=== PATIENT | female | born 1975 | race Caucasian/White ===

== ENCOUNTER 2022-02-05 13:00 | Emergency (ER) | payer SELFPAY ==
[2022-02-05 13:02] VITALS: BP 130/82; PULSE 64; RESP 18; TEMP 36.4; O2SAT 99; BMI 41.1
--- NOTE | 2022-02-05 13:24 | ECG_ITS ---
[facility] Test Date: 2022-02-05 Pat Name: Eva Ngo Department: Room: Gender: Female Refrigeration Service Technician: : 1975 Requested By: Gurmeet Pa Order Number: [id number] Pro MD: Femi Cruz M.D. Measurements Intervals [place] Rate: 64 P: 41 ME: 156 QRS: 44 QRSD: 75 T: 40 QT: 404 QTc: 417 Interpretive Statements SINUS RHYTHM POSSIBLE LEFT ATRIAL ENLARGEMENT [-0.1mV P-WAVE IN V1/V2] LOW QRS VOLTAGE IN PRECORDIAL LEADS [QRS DEFLECTION < 1.0 mV IN CHEST LEADS] No previous ECG available for comparison Electronically Signed On 02-05-2022 17:16:41 CDT by Femi Cruz M.D. [id number]
--- NOTE | 2022-02-05 13:37 | W.ED.DIZZY ---
HPI - Dizziness General: Chief Complaint: Dizziness Stated Complaint: Heart racing Time Seen by Provider: 02/05/22 13:36 Source: patient Mode of arrival: ambulatory History of Present Illness: HPI Narrative: 46-year-old female feeling very anxious and at times dizzy. She felt like her heart was racing she woke up she fell back asleep and then got up again this morning she tried to do some activities around the house just felt like her heart was racing and she was slightly short of breath she never had any chest pain. She denies any fever sweats chills she was recently started on antibiotics for serous otitis media and she still completing nose. She is not used any decongestants or any nasal sprays. She denies any fever sweats or chills. She is not dizzy at all at this time nor does she feel like she has any racing heartbeats or irregular heartbeat. No focal neurologic deficits noted. MD elicited complaint: dizziness and lightheadedness Onset (ago): hour(s) Timing: awoke with symptoms Severity: mild Exacerbating factors: nothing Relieving factors: nothing Associated symptoms: Reports palpitations; Denies change in hearing, chest pain, chills, cough, diaphoresis, ear discharge, ear pressure, fevers/chills, headache(s), malaise, nausea, nasal congestion, rash, short of breath, syncope, tinnitus, vomiting or weakness Associated neuro symptoms: Deny confusion, difficulty speaking, dysphagia, diplopia, extremity weakness, facial numbness, facial weakness, gait changes, numbness in extremities or visual changes Review of Systems Const: Denies: fever(s), chills, malaise or diaphoresis ENMT: Denies: ear discharge, change in hearing, tinnitus or nasal congestion Card: Reports: palpitations; Denies: chest pain, irregular heart rhythm, edema or syncope Resp: Reports: dyspnea; Denies: productive cough or non-productive cough GI: Denies: nausea, vomiting or dysphagia : Denies: flank pain, difficulty voiding, dysuria, urinary frequency or urinary urgency Skin/Breast: Denies: rash or pruritus Neuro: Denies: headache(s), numbness in extremities or confusion PFS ED PFSH: Medical History Dental abscess Social History Smoking and tobacco status: never smoked Female Reproductive History: Date of last menstrual period: 01/20/22 Physical Exam Const: GENERAL APPEARANCE: cooperative and comfortable ORIENTATION/CONSCIOUSNESS: Yes awake, Yes oriented to person, Yes oriented to place and Yes oriented to time HENMT: COMMON NORMALS: normocephalic, atraumatic and hearing grossly normal bilaterally HEAD & SCALP: normocephalic and atraumatic Resp: COMMON NORMALS: normal respiratory effort, No retractions, No use of accessory muscles and clear to auscultation bilaterally AUSCULTATION: clear to auscultation bilaterally Cardio: COMMON NORMALS: regular rate, regular rhythm and No murmurs present (Cardio) RATE: regular rate RHYTHM: regular rhythm GI: COMMON NORMALS: Soft to palpation and No hepatosplenomegaly present AUSCULTATION: Yes normoactive bowel sounds PALPATION: Yes Soft to palpation, No Tenderness to palpation present (GI), No Guarding due to palpation present (GI) and Yes No hepatosplenomegaly present Extremity: COMMON NORMALS: normal to inspection, capillary refill normal, no clubbing, cyanosis or edema, no calf tenderness and no pedal edema Neuro: SENSORIUM/ORIENTATION: Yes oriented to person, Yes oriented to place and Yes oriented to time Skin: COMMON NORMALS: no rashes or lesions noted GENERAL SKIN EXAM: no rashes or lesions noted Course Vital Signs: Vital signs: Vital Signs Temperature 97.5 F L 02/05/22 13:02 Pulse Rate 73 02/05/22 14:59 Respiratory Rate 16 02/05/22 14:59 Blood Pressure 153/87 02/05/22 14:59 Pulse Oximetry 99 02/05/22 14:59 Oxygen Delivery Me thod 02/05/22 14:59 MDM - Dizziness Medical Decision Making Labs and EKG reviewed. Exam is normal. EKG does not show anything acute. At most she has a little bit of fluid behind her right ear but otherwise I find no significant lab or exam abnormalities. Encourage patient to follow-up with her primary care doctor return if is worsening symptoms Medical Records I reviewed the patient's medical records. Lab Data I reviewed the patient's lab results. : 02/05/22 13:50 02/05/22 13:50 Laboratory Results WBC 5.7 10^3/uL (4.0-10.0) 02/05/22 13:50 RBC 4.87 10^6/uL (4.1-5.3) 02/05/22 13:50 Hgb 12.9 g/dL (11.5-15.3) 02/05/22 13:50 Hct 39.6 % (37.0-47.0) 02/05/22 13:50 MCV 81.3 fl (81-99) 02/05/22 13:50 MCH 26.5 pg (28.0-34.0) L 02/05/22 13:50 MCHC 32.6 g/dL (30.0-36.0) 02/05/22 13:50 RDW 14.2 % (12.1-15.1) 02/05/22 13:50 Plt Count 277 10^3/cmm (130-400) 02/05/22 13:50 MPV 10.2 fL (7.4-10.4) 02/05/22 13:50 Neut % (Auto) 56.3 % 02/05/22 13:50 Lymph % (Auto) 34.0 % 02/05/22 13:50 [place] % (Auto) 6.8 % 02/05/22 13:50 Eos % (Auto) 2.3 % 02/05/22 13:50 Baso % (Auto) 0.3 % 02/05/22 13:50 Neut # (Auto) 3.23 10^3/uL (1.8-7.7) 02/05/22 13:50 Lymph # (Auto) 2.0 10^3/uL (0.8-4.8) 02/05/22 13:50 [place] # (Auto) 0.4 10^3/uL (0.2-0.9) 02/05/22 13:50 Eos # (Auto) 0.1 10^3/uL (0.0-0.8) 02/05/22 13:50 Baso # (Auto) 0.0 10^3/uL (0.0-0.1) 02/05/22 13:50 Nucleated RBC % (auto) 0 % 02/05/22 13:50 Nucleated RBCs # 0.0 /100WBC 02/05/22 13:50 Sodium 136 mmol/L (136-145) 02/05/22 13:50 Potassium 4.0 mmol/L (3.5-5.1) 02/05/22 13:50 Chloride 102 mmol/L (98-107) 02/05/22 13:50 Carbon Dioxide 25 mmol/L (22-29) 02/05/22 13:50 Anion Gap 13.0 (5-19) 02/05/22 13:50 BUN 9 mg/dL (6-20) 02/05/22 13:50 Creatinine 0.7 mg/dL (0.5-0.9) 02/05/22 13:50 GFR Calculation 90.5 mL/min (90-130) 02/05/22 13:50 Glucose 92 mg/dL (65-115) 02/05/22 13:50 Calculated Osmolality 280 mOsm/kg (285-295) L 02/05/22 13:50 Calcium 8.9 mg/dL (8.5-10.5) 02/05/22 13:50 Discharge Plan Discharge Patient Disposition: Home Clinical Impression: Anxiety, Serous otitis media Condition: Stable Prescriptions: No Action amoxicillin 875 mg tablet 875 mg PO BID 10 Days Qty: 20 0RF Zyrtec 10 mg Tablet 10 mg PO DAILY Flonase 50 mcg/actuation [place],Suspension 1 spray INTRANASAL Q12H Rx Instructions: administer into each nostril Discharge Orders: Discharge ED (Routine); Ordered 02/05/22 Ordered By: Gurmeet Kaba Discharge Diet: Usual diet Discharge Activity: Resume usual activity Patient Instructions: Opioid Safety, Pain Management Activity Restrictions/Additional Instructions: Follow-up with your primary care doctor as needed complete the previously prescribed antibiotics. Coding Level of Care Code ED Wax [place] Knock Out Worker for Chauncey Salomon
[2022-02-05 13:46] VITALS: BP 158/100; PULSE 72; RESP 16; O2SAT 99
--- NOTE | 2022-02-05 13:48 | PC.NURSE ---
Patient is on continuous CM and SP02 monitor.
[2022-02-05 14:07] LABS: Basophils % 0.3 %; Eosinophils # 0.1 10^3/uL (0.0-0.8); Eosinophils % 2.3 %; Hematocrit 39.6 % (37.0-47.0); Hemoglobin 12.9 g/dL (11.5-15.3); Mean Corpuscular HGB Conc 32.6 g/dL (30.0-36.0); Mean Corpuscular Hemoglobin 26.5 pg (28.0-34.0); Mean Corpuscular Volume 81.3 fl (81-99); Mean Platelet Volume 10.2 fL (7.4-10.4); Monocytes # 0.4 10^3/uL (0.2-0.9); Monocytes % 6.8 %; Neutrophils # 3.23 10^3/uL (1.8-7.7); Neutrophils % 56.3 %; Nucleated Red Blood Cells % 0 %; Platelet Count 277 10^3/cmm (130-400); Red Blood Count 4.87 10^6/uL (4.1-5.3); Red Cell Distribution Width 14.2 % (12.1-15.1); White Blood Count 5.7 10^3/uL (4.0-10.0)
[2022-02-05 14:27] LABS: Blood Urea Nitrogen 9 mg/dL (6-20); Calcium 8.9 mg/dL (8.5-10.5); Carbon Dioxide 25 mmol/L (22-29); Chloride 102 mmol/L (98-107); Creatinine Clr Calc Pharmacy 122.3503; Glomerular Filtration Rate 90.5 mL/min (90-130); Glucose 92 mg/dL (65-115); Osmolality Calculated 280 mOsm/kg (285-295); Sodium 136 mmol/L (136-145)
[2022-02-05 14:59] VITALS: BP 153/87; PULSE 73; RESP 16; O2SAT 99
[2022-02-05 15:22] VITALS: BP 150/91; PULSE 62; RESP 17; O2SAT 99
== END 2022-02-05 15:23 | disposition home or self-care (01) ==
PROVIDERS: Emergency Provider Family Medicine
DX: F41.9 Anxiety disorder, unspecified (principal); H65.91 Unspecified nonsuppurative otitis media, right ear
CPT/HCPCS: 80048; 85025; 90686; 93005; 99284

== ENCOUNTER → 2022-02-06 09:59 | Outpatient (BNVA) | payer SELFPAY | PROVIDERS: PCP Family Medicine; Visit Provider Family Medicine | DX: F32.1 Major depressive disorder, single episode, moderate (principal); Z68.41 Body mass index [BMI] 40.0-44.9, adult; Z12.4 Encounter for screening for malignant neoplasm of cervix; Z23 Encounter for immunization; Z12.39 Encounter for other screening for malignant neoplasm of breast; F41.9 Anxiety disorder, unspecified; J30.2 Other seasonal allergic rhinitis; H65.90 Unspecified nonsuppurative otitis media, unspecified ear | CPT/HCPCS: 80061 ==

== ENCOUNTER → 2022-04-06 10:12 | Outpatient (BNVA) | payer SELFPAY | PROVIDERS: PCP Family Medicine; Visit Provider Obstetrics & Gynecology | DX: Z01.419 Encounter for gynecological examination (general) (routine) without abnormal findings (principal); Z12.39 Encounter for other screening for malignant neoplasm of breast | CPT/HCPCS: 87624 ==

== ENCOUNTER 2023-02-23 12:03 | Emergency (ER) | payer OTHER, SELFPAY ==
[2023-02-23 12:03] VITALS: BP 142/107; PULSE 70; RESP 18; TEMP 36.7; O2SAT 98; BMI 39.9
[2023-02-23 12:14] VITALS: BP 142/107; PULSE 63; RESP 18; O2SAT 93
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
[2023-02-23 12:56] LABS: Basophils # 0.1 10^3/uL (0.0-0.1); Basophils % 0.8 %; Eosinophils # 0.3 10^3/uL (0.0-0.8); Eosinophils % 3.7 %; Hematocrit 42.3 % (36-47); Lymphocytes # 1.7 10^3/uL (0.8-4.8); Lymphocytes % 19.8 %; Mean Corpuscular HGB Conc 31.9 g/dL (30-55); Mean Corpuscular Hemoglobin 26.4 pg (27-33); Mean Corpuscular Volume 82.6 fl (85-98); Mean Platelet Volume 10.2 fL (7.4-10.4); Monocytes # 0.4 10^3/uL (0.2-0.9); Monocytes % 5.1 %; Neutrophils # 6.13 10^3/uL (1.8-7.7); Neutrophils % 70.4 %; Nucleated Red Blood Cells % 0 %; Platelet Count 358 10^3/cmm (157-399); Red Blood Count 5.12 10^6/uL (3.85-5.65)
[2023-02-23 13:15] LABS: Alanine Aminotransferase 40 U/L (0-33); Albumin Level 4.3 g/dL (3.5-5.2); Alkaline Phosphatase 77 U/L (35-105); Aspartate Amino Transferase 34 U/L (0-32); Blood Urea Nitrogen 11 mg/dL (6-20); Calcium 9.3 mg/dL (8.5-10.5); Carbon Dioxide 26 mmol/L (22-29); Chloride 103 mmol/L (98-107); Globulin 3.1 g/dL (1.3-4.6); Glomerular Filtration Rate 77.2 mL/min (90-130); Glucose 105 mg/dL (65-115); Osmolality Calculated 288 mOsm/kg (285-295); Sodium 139 mmol/L (136-145); Total Bilirubin 0.6 mg/dL (0.15-1.2); Total Protein 7.4 g/dL (6.6-8.7)
[2023-02-23] MEDS: iohexol 350 mg/mL 500 mL Btl (per mL) IV (13:17)
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
[2023-02-23 13:53] LABS: Urine Color Dark Yellow (Yellow)
[2023-02-23 13:54] LABS: Add Urine Microscopic? YES; Bilirubin Urine 1+ (Negative); Blood Urine 3+ (Negative); Glucose Urine UA Norm (Normal); Ketones Urine Negative (Negative); Leukocyte Esterase Urine Trace (Negative); Nitrate Urine Negative (Negative); Protein Urine 1+ (Negative); Urine Appearance SL Hazy (CLEAR); Urobilinogen Urine Norm (Negative); pH Urine 5 (5-7)
[2023-02-23 13:55] LABS: Add Urine Culture? Yes; Bacteria Urine 2+ /hpf
== END 2023-02-23 15:09 | disposition home or self-care (01) ==
PROVIDERS: Emergency Provider Family Medicine; PCP Family Medicine
DX: S39.012A Strain of muscle, fascia and tendon of lower back, initial encounter (principal); M54.2 Cervicalgia; V89.2XXA Person injured in unspecified motor-vehicle accident, traffic, initial encounter; S40.022A Contusion of left upper arm, initial encounter
CPT/HCPCS: 70450; 71260; 72125; 73502; 73562; 74177; 80053; 81001; 85025; 87086; 99285; Q9967

== ENCOUNTER → 2023-03-04 12:28 | Outpatient (BNVA) | payer MEDICAID, SELFPAY | PROVIDERS: PCP Family Medicine; Visit Provider Family Medicine Adult Medicine | DX: Z20.822 Contact with and (suspected) exposure to COVID-19 (principal) | CPT/HCPCS: 87426 ==

== ENCOUNTER → 2024-01-24 16:07 | Outpatient (BNVA) | payer BC, MEDICAID, SELFPAY | PROVIDERS: PCP Family Medicine; Visit Provider Family Medicine | DX: Z01.89 Encounter for other specified special examinations (principal); Z68.41 Body mass index [BMI] 40.0-44.9, adult | CPT/HCPCS: 80053; 80061; 84443; 85025 ==

== ENCOUNTER 2024-03-03 10:30 | Outpatient (CLI) | payer BC, MEDICAID, SELFPAY ==
--- NOTE | 2024-03-03 10:30 | MM_ITS ---
WS: [id number] BILATERAL 3D TOMOSYNTHESIS DIGITAL SCREENING MAMMOGRAPHY WITH CAD CLINICAL INFORMATION: screening HISTORY: Screening mammogram. No current complaints. COMPARISON: Baseline TECHNIQUE: Bilateral CC and MLO views. FINDINGS: The breasts are composed of heterogeneous fibroglandular density tissue, which can limit the detectio n of small underlying mass lesions. No suspicious mass, asymmetry, calcifications, or architectural d istortion. No evidence of malignancy. MM/MM [facility] tomosynthesis [id number] IMPRESSION: DENSITY: The breasts are heterogeneously dense, which may obscure small masses. BI-RADS: 1 - Negative FOLLOW UP: 1 Year Follow-up Recommend return to annual screening mammography.
== END 2024-03-03 10:37 | disposition home or self-care (01) ==
PROVIDERS: PCP Family Medicine; Visit Provider Family Medicine
DX: Z12.31 Encounter for screening mammogram for malignant neoplasm of breast (principal); R92.333 Mammographic heterogeneous density, bilateral breasts
CPT/HCPCS: 77063; 77067

== ENCOUNTER → 2024-11-27 11:04 | Outpatient (BNVA) | payer OTHER, SELFPAY | PROVIDERS: PCP Family Medicine; Visit Provider Nurse Practitioner | DX: N39.0 Urinary tract infection, site not specified (principal) | CPT/HCPCS: 81000 ==

== ENCOUNTER → 2025-02-08 09:59 | Outpatient (BNVA) | payer OTHER, SELFPAY | PROVIDERS: PCP Family Medicine; Visit Provider Family Medicine | DX: N91.2 Amenorrhea, unspecified (principal) | CPT/HCPCS: 80053; 80061; 81025; 83036; 84439; 84443; 85025 ==

== ENCOUNTER → 2025-03-10 15:45 | Outpatient (BNVA) | payer OTHER, SELFPAY | PROVIDERS: PCP Family Medicine; Visit Provider Nurse Practitioner Women's Health | DX: Z12.4 Encounter for screening for malignant neoplasm of cervix (principal) | CPT/HCPCS: 87624 ==

== ENCOUNTER 2025-03-24 14:44 | Outpatient (CLI) | payer OTHER, SELFPAY ==
--- NOTE | 2025-03-24 14:40 | MM_ITS ---
WS: [id number] BILATERAL 3D TOMOSYNTHESIS DIGITAL SCREENING MAMMOGRAPHY WITH CAD CLINICAL INFORMATION: Z12.39 - Encounter for other screening for malignant neop... HISTORY: Screening mammogram. No current complaints. COMPARISON: 2023 TECHNIQUE: Bilateral CC and MLO views. FINDINGS: The breasts are composed of heterogeneous fibroglandular density tissue, which can limit the detection of small underlying mass lesions. No suspicious mass, asymmetry, calcifications, or architectural distortion. No evidence of malignancy. MM/MM [facility] tomosynthesis [id number] IMPRESSION: DENSITY: The breasts are heterogeneously dense, which may obscure small masses. BI-RADS: 1 - Negative FOLLOW UP: 1 Year Follow-up Recommend return to annual screening mammography.
== END 2025-03-24 14:45 | disposition home or self-care (01) ==
LOC: RAD 14:48
PROVIDERS: PCP Family Medicine; Visit Provider Nurse Practitioner Women's Health
DX: Z12.39 Encounter for other screening for malignant neoplasm of breast (principal); Z12.31 Encounter for screening mammogram for malignant neoplasm of breast; R92.333 Mammographic heterogeneous density, bilateral breasts; R92.323 Mammographic fibroglandular density, bilateral breasts
CPT/HCPCS: 77063; 77067